=== PATIENT | male | born 1960 | race Caucasian/White ===

== ENCOUNTER → 2017-06-02 | Day surgery (SDC) | payer OTHER ==
[~2017-06-02] MED LIST: AMLO5TAB2 PO; ATOR20TA58 PO; FLUO20CA8 PO; HYDR25TA9 PO; IV RINGERS,LACTATED 1000ML 1,000 ML IV SCH; LIDOCAINE 1% 1 ML SYRINGE. ID PRN; LIDOCAINE 2% PF Vial for OR 5 ML VIAL. ONE; LOSA50TA6 PO; MIDAZOLAM HCL/PF 2 MG/2 ML VIAL. IV PRN; OMEP20CA9 PO; POTA10TA12 PO; PROPOFOL 20 ML IV ONE; TAMS0.4C2 PO; ZOLP10TA4 PO; fentaNYL PF VIAL 100 MCG/2 ML VIAL IV PRN
--- NOTE | 2017-06-02 11:05 | PDOC1 ---
History and Physical Date of Admission Date of Admission DATE: 06/02/17 TIME: 10:57 History of Present Illness History of Present Illness 57 y/o male here for CRC screening. Last colonoscopy 15 years ago reportedly normal. Some recent change and bowel habits and heme positive stool noted recently with PCP. Long h/o reflux with chronic PPI use. Last EGD 15 years ago , results unclear. Scott's to be considered. Otherwise w/o complaints. Past Medical History Cardiovascular: HTN, Hyperlipidemia Pulmonary: Other (SALUD) Past Surgical History Past Surgical History: Hernia Repair Social History Smoke: No ALCOHOL: occassional Drugs: None Current Medications Current Medications Current Medications Propofol 20 ml @ As Directed STK-MED ONCE IV ; Start 06/02/17 at 10:50; Stop at 10:51; Status DC Propofol 20 ml @ As Directed STK-MED ONCE IV ; Start 06/02/17 at 10:50; Stop at 10:51; Status DC Lidocaine HCl (Lidocaine Pf 2% Vial) 5 ml STK-MED ONCE .ROUTE ; Start 06/02/17 at 10:50; Stop 06/02/17 at 10:51; Status DC Allergies Allergies: Coded Allergies: No Known Drug Allergies (Unverified , 06/02/17) ROS Review of System Otherwise negative. Physical Exam General: Alert, Oriented X3, Cooperative, No acute distress Lungs: Clear to auscultation Heart: S1S2, RRR, no gallops, no murmurs Abdomen: Normal bowel sounds, Soft, No tenderness, No hepatosplenomegaly, No masses Rectal Exam: deferred (to time of procedure) Extremities: No cyanosis, No edema Skin: No significant lesion Neuro: Normal gait, Normal speech, Strength at 5/5 X4 ext, Normal tone, Sensation intact, Cranial nerves 3-12 NL, Reflexes 2+ Psych/Mental Status: Mental status NL, Mood NL Vitals Vitals See nursing record. VTE Prophylaxis Ordered VTE Prophylaxis Devices: No VTE Pharmacological Prophylaxi: No Assessment/Plan Assessment/Plan IMP: Heme positive stool/screen for CRC Chronic heartburn; r/o Scott's. PLAN: colonoscopy and EGD. RICKY WILKS MD Jun 02, 2017 11:05
--- NOTE | 2017-06-02 12:06 | PDOC4 ---
PROCEDURE Procedure EGD/colonoscopy Indications: chronic HB, r/o Barretts/CRC screen, heme positive stool Meds: per anesthesia. Findings: E--healed reflux at 45cm. No Scott's. G--normal D--normal. COMFORT: Normal; small prostate Diverticulosis, distal descending-->sigmoid. Mucosa normal. 3-4mm polyp, cecum. 3mm polyp, mid-transverse. Small hemorrhoids. Zaki. well. IMP: GERD w/o Scott's Diverticulosis. Small polyps, removed. Small internal hemorrhoids. REC: Continue PPI. Resume other meds, diet. Await path. F/u in office 2 weeks. RICKY WILKS MD Jun 02, 2017 12:06
[2017-06-02 12:34] VITALS: BP 157/91
--- NOTE | 2017-06-03 11:28 | PATHOLOGY ---
PATHOLOGY REPORT * * * * * * * * FINAL DIAGNOSIS: A. Colon biopsy, mid transverse colon polyp: - Consistent with hyperplastic polyp / prominent fold. - Hyperplastic mucosal-associated lymphoid aggregate. B. Colon biopsy, cecum polyp: - Hyperplastic polyp. - Mucosal-associated lymphoid aggregate. COMMENT: There are no adenomatous changes or evidence of malignancy. (JPM:mml; 06/03/2017) REPORT ELECTRONICALLY SIGNED BY: Nuno Finn M.D. DATE/TIME: 06/03/2017 11:27 * * * * * * * * GROSS PATHOLOGY: A. Received in formalin labeled "Koko Pierre, mid transverse biopsy," is a segment of flynn soft tissue measuring 0.4 cm in maximum dimension. The specimen is submitted entirely in cassette A1. B. Received in formalin labeled "cecum polyp," are two segments of flynn soft tissue measuring 0.2 and 0.3 cm in maximum dimension. The specimen is submitted entirely in cassette B1. (JPM; 06/02/17) INITIAL CPT CODE(S): A; 91857 B; 94835 Professional services performed [place] [facility] [place] [address] Technical services performed by [facility] at [address] [place] [address] [address], [place] [id number]. SPECIMEN(S) RECEIVED: A.Mid transverse polyp B.Cecum polyp CLINICAL HISTORY: Screening PATIENT: KOKO PIERRE /AGE: 301/14/1960 (Age: 57) PATIENT #: [id number] ALT CASE #: SPECIMEN COLLECTION DATE: 06/02/2017 SPECIMEN RECEIVED DATE: 06/02/2017 [facility] - [address] [place] [address] - PHONE: [phone] * * * END OF REPORT * * *
== END | disposition home or self-care (01) ==
LOC: ENDOS 10:45
PROVIDERS: ATTEND Internal Medicine Gastroenterology
DX: Z12.11 Encounter for screening for malignant neoplasm of colon (principal); D12.3 Benign neoplasm of transverse colon; D12.0 Benign neoplasm of cecum; K64.8 Other hemorrhoids; K57.30 Diverticulosis of large intestine without perforation or abscess without bleeding; K20.9 Esophagitis, unspecified; E78.00 Pure hypercholesterolemia, unspecified; I10 Essential (primary) hypertension; K21.9 Gastro-esophageal reflux disease without esophagitis; F41.9 Anxiety disorder, unspecified; E78.5 Hyperlipidemia, unspecified; Z87.39 Personal history of other diseases of the musculoskeletal system and connective tissue; Z72.89 Other problems related to lifestyle
CPT/HCPCS: 43235; 45380; 88305; J2001; J2704